=== PATIENT | male | born 1980 | race African-American/Black ===

== ENCOUNTER 2021-08-18 10:04 | Inpatient (IN) | payer OTHER ==
[~2021-08-18] VITALS: Ht 180.3 cm; Wt 91.0 kg
[2021-08-18] MEDS ORDERED: MELATONIN1 MG PO (10:49)
[2021-08-18] MEDS ORDERED: REMERON45 M1 PO (10:50)
--- NOTE | 2021-08-18 14:58 | NUR ---
New admit from ED. Patient arrived alert and oriented x4. Patient on room air, respirations even and non labored. Patient reports abd pain is 10/10. Morphine 4mg iv and oxycodone 5mg po admin for pain. IV fluids started per provider order. Patient oriented to room and call light. Two correctional officers at bedside. Patient has correctional wrist and ankle cuffs in place.
--- NOTE | 2021-08-18 17:59 | NUR ---
Patient resting in bed, eyes closed, respirations even and non labored. IV fluids infusing per provider order. Two correctional officers at bedside.
--- NOTE | 2021-08-18 18:35 | NUR ---
PATIENT SITTING UP IN BED WATCHING TV, 2 GUARDS IN ROOM. VITALS AND I&O'S CHARTED. FRESH ICE CHIPS GIVEN. CALL LIGHT IN REACH. NO FURTHER NEEDS AT THIS TIME.
--- NOTE | 2021-08-18 18:48 | NUR ---
Patient eating ice chips, no nausea at this time. Patient reports abdominal pain has improved, declined pain medication at this time. No needs. Two correctional officers at bedside.
--- NOTE | 2021-08-18 19:30 | NUR ---
SHIFT REPORT RECEIVED FROM DAYSHIFT ELVIA BARNES AT BEDSIDE. pt AWAKE AND RESTING IN BED, ON RA. RR EVEN AND UNLABORED. GUARDS X2 IN ROOM. IV FLUIDS INFUSING DIRECTED, IV SITE WNL. NO NEEDS OR CONCERNS VERBALIZED, CALL LIGHT IN REACH. BOARD UPDATED.
--- NOTE | 2021-08-18 21:45 | NUR ---
ASSESSMENT COMPLETE, pt AWAKE AND RESTING IN BED. VSS, pt ON RA. REPORTS INCREASED PAIN 6/10, PRN PAIN AND NAUSEA MEDICATION GIVEN (SEE EMAR). NEW BAG IV FLUIDS ALSO INFUSING DIRECTED, IV SITE WNL AND FLUSHED EASILY. BRISK BLOOD RETURN NOTED. BOWEL TONES ACTIVE. GUARDS IN ROOM, SKILLED NURSING RESRAINTS IN PLACE. NO FURTHER NEEDS, CUP OF ICE PROVIDED. CALL LIGHT IN REACH.
--- NOTE | 2021-08-19 00:01 | NUR ---
rounded on pt, pt resting in bed with eyes closed. on ra, rr even and unlabored. no distress noted. call light in reach. guards x2 in room.
--- NOTE | 2021-08-19 00:59 | NUR ---
CALL LIGHT ANSWERED, IV PUMP ALARMING. ISSUE RESOLVED. IV SITE WNL, FLUIDS CONTINUE TO INFUSE DIRECTED. CALL LIGHT IN REACH.
--- NOTE | 2021-08-19 02:17 | NUR ---
IV PUMP ALARMING, ISSUE RESOLVED. NEW BAG IV FLUIDS HUNG AND INFUSING DIRECTED. IV SITE WNL. ASSESSMENT COMPLETE, NO ACUTE CHANGES. pt DENEIS NAUSEA, BOWEL TONES ACTIVE. REPORTS ABD TENDERNESS IN UPPER QUADRANTS. RATES PAIN TOLERABLE 4/10, DENIES NEED FOR PAIN MEDICATION. VSS AND I&O'S COMPLETE. pt REPORTS PEEING UNMEASURED VOID X1 AND DESCRIBES IT "A LOT", HAT PROVIDED, pt EDUCATED TO USE HAT TO BETTER MEASURE URINE OUTPUT, pt VERBALIZED UNDERSTANDING. CALL LIGHT IN REACH.
--- NOTE | 2021-08-19 03:35 | NUR ---
pt RESTING IN BED WITH EYES CLOSED, ON RA. RR EVEN AND UNLABORED. NO DISTRESS NOTED. CALL LIGHT IN REACH.
--- NOTE | 2021-08-19 05:21 | NUR ---
VSS AND I&O'S COMPLETE. FRESH ICE CHIPS PROVIDED AND IV FLUIDS INFUSIGN DIRECTED. IV SITE WNL. NO FURTHER NEEDS, CALL LIGHT IN REACH.
--- NOTE | 2021-08-19 05:26 | NUR ---
PRN TYLENOL GIVEN FOR REPORTED 5/10 PAIN R/T HEADACHE.
--- NOTE | 2021-08-19 05:45 | NUR ---
PRN OXYCODONE ALSO GIVEN FOR REPORTED PAIN TO ABD, WARM WASHCLOTH PROVIDED TO WASH pt's FACE PER pt REQUEST.
--- NOTE | 2021-08-19 07:11 | NUR ---
NEW BAG IV FLUIDS HUNG AND INFUSING DIRECTED. IV SITE WNL, CALL LIGHT IN REACH,.
--- NOTE | 2021-08-19 09:19 | NUR ---
Oxycodone 5mg po admin for reports of 7/10 abd pain.
[2021-08-19] MEDS ORDERED: DICLOFENAC SODI75 MG PO (09:29)
[2021-08-19] MEDS ORDERED: MIRALAX17 GM PO (10:01)
[2021-08-19] MEDS ORDERED: ARTHRITIS PAIN57 GM TOP (10:02)
[2021-08-19] MEDS ORDERED: VASELINE18 ML TOP (10:02)
[2021-08-19] MEDS ORDERED: MILK OF MA400 MG/5 M PO (10:03)
--- NOTE | 2021-08-19 10:03 | NUR ---
MED REC COMPLETE
--- NOTE | 2021-08-19 11:31 | NUR ---
Patient reports increased abdominal pain and nausea. Admin Morphine 2mg iv and zofran 4mg iv at this time. Patient provided with a warm pack as well. Head of bed is elevated at this time. Patient encouraged to rest. Two correctional officers at in room at this time, no further needs at this time.
--- NOTE | 2021-08-19 13:34 | NUR ---
Patient in bed at this time resting, no acute distress. Patient has no needs at this time. Personal supplies and call light within reach.
--- NOTE | 2021-08-19 14:44 | NUR ---
IV fluid rate decreased to 150ml/hr per provider order. Patient provided with fresh water and jello as his diet advanced to clears. Admin Oxycodone 10mg po and tylenol 500mg po for reports of 7/10 abdominal pain.
--- NOTE | 2021-08-19 18:48 | NUR ---
Patient resting in bed, no distress. IV fluids infusing per provider order. Patient reports pain is tolerable. Patient has tolerated clears well.
--- NOTE | 2021-08-19 19:20 | NUR ---
SHIFT REPORT RECEIVED FROM ONELUTFT ELVIA BARNES AT BEDSIDE. pt AWAKE AND RESTING IN BED. EOCI RESTRAINTS IN PLACE, GUARDS X2 IN ROOM. IV FLUIDS INFUSING, IV SITE WNL. CALL LIGHT IN REACH, NO NEEDS OR CONCERNS VERBALIZED. WILL CONTINUE TO MONITOR.
--- NOTE | 2021-08-19 21:00 | NUR ---
ASSESSMENT COMPLETE, pt REPORTS 6/10 PAIN. PRN PAIN AND NAUSEA MEDICATION BOTH GIVEN, SEE EMAR. IV SITE WNL, FLSUHES ESILY WITH BRISK BLOOD RETURN. ABD SOFT, TENDERNESS NOTED WITH PALPATE IN UPPER QUADRANTS. CMS INTACT, pt DENEIS NUMBNESS AND TINGLING. VSS AND I&O'S COMPLETE. NO FURTHER NEEDS, CALL LIGHT IN REACH.
--- NOTE | 2021-08-19 22:30 | NUR ---
ROUNDED ON pt, pt AWAKE AND RESTING IN BED. IV SITE WNL, FLUIDS INFUSING DIRECTED. CALL LIGHT IN REACH.
--- NOTE | 2021-08-19 23:50 | NUR ---
PT PROVIDED WITH BATH WIPES AND ASSISTED WITH FRESHING UP, NO FURTHER NEEDS
--- NOTE | 2021-08-20 00:03 | NUR ---
APPLEJUICE AND FRESH WATER PROVIDED, NO ADDITIOANL NEEDS.
--- NOTE | 2021-08-20 00:32 | NUR ---
NEW BAG IV FLUIDS HUNG AND INFUSING DIRECTED, IV SITE WNL. NO FURTHER NEEDS, CALL LIGHT IN REACH.
--- NOTE | 2021-08-20 02:25 | NUR ---
pt AWAKE AND RESTING IN BED, NO NEEDS OR CONCERNS VERBALIZED. CALL LIGHT IN REACH.
--- NOTE | 2021-08-20 04:50 | NUR ---
IN TO GET VS, PT HAS NO FURTHER NEEDS AT THIS TIME
--- NOTE | 2021-08-20 05:26 | NUR ---
IV SITE WNL, PUMP CLEARED. ASSESSMENT COMPLETE, pt RESTING QUIETLY IN BED WITH EYES CLOSED. AWOKE FOR ASSESSMENT, NO NEEDS OR CONCERNS VERBALIZED BY pt. CALL LIGHT IN REACH.
--- NOTE | 2021-08-20 07:20 | NUR ---
REPORT RECIEVED FROM [facility]. PT RESTING IN BED, GUARDS AT BEDSIDE. CALL LIGHT IN REACH.
--- NOTE | 2021-08-20 08:32 | NUR ---
PT ASSESSMENT COMPLETE. SCHEDULED MEDICATIONS GIVEN. DR ODELL IN ROOM TO DISCUSS PLAN OF CARE, PT UNDERSTANDS AND IS AGREEABLE. PT A +O, STAES NO PAIN AT THIS TIME. HRR, LSC, BOWEL TONES ACTIVE. LEFT LEG ELEVATED DRESSING INTACT, CMS INTACT. SKIN WARM AND DRY. NO FUTHER NEEDS AT THIS TIME. WILL CONTINUE PLAN OF CARE CALL LIGHT IN REACH.
--- NOTE | 2021-08-20 08:50 | NUR ---
IN ROOM TO ADMINISTER SCHEDULED MEDICATIONS, ASSESSMENT COMPLETE. PT A + O. HRR, LSC, BOWEL TONES ACTIVE. PT STATES TENDERNESS IN LRQ. MILDLY DISTENDED, NO PAIN AT THIS TIME. SKIN WARM AND DRY CMS INTACT. IV WNL. NO FURTHER NEEDS AT THIS TIME. WILL CONTINUE PLAN OF CARE.
--- NOTE | 2021-08-20 10:05 | NUR ---
PROVIDED PT WITH FOOD TO ADVANCE TO A FULL CLEAR DIET. PT EDUCATED STATES UNDERSTANDING. WILL CONTINUE PLAN OF CARE. GUARDS X2 AT BEDSIDE. CALL LIGHT IN REACH.
--- NOTE | 2021-08-20 10:27 | NUR ---
PATIENT SITTING UP IN BED WATCHING TV. 2 GUARDS IN ROOM. VITALS AND I&O'S CHARTED. CALL LIGHT IN REACH. NO FURTHER NEEDS AT THIS TIME.
--- NOTE | 2021-08-20 12:30 | NUR ---
IN PT ROOM TO ANSWER CALL LIGHT, TOILET PAPER PROVIDED. PT TOLERATED CLEARS AND FULL LIQUIDS. GUARDS IN ROOM, PT INTERACTING WITH STAFF. NO OTHER NEEDS AT THIS TIME.
--- NOTE | 2021-08-20 13:50 | NUR ---
IN ROOM TO REASSESS PT. PT RESTING IN BED WATCHING TV. PT A+O, ON ROOM AIR, LSC. PT STATES TENDERNESS IN ABD, MILDLY DISTENDED. CMS INTACT. CALL LIGHT IN REACH. WATER PROVIDED. NO FUTHER NEEDS AT THIS TIME.
--- NOTE | 2021-08-20 14:07 | NUR ---
New bag IVF hung at 100ml/hr. Pt medicated with PRN meds- zofran and PO oxycodone for 5/10 ABD pain. Pt A+O, RR even, no further needs. Repositioned in bed.
--- NOTE | 2021-08-20 14:43 | NUR ---
PATIENT SITTING UP IN BED WATCHING TV. 2 GUARDS IN ROOM. VITALS AND I&O'S CHARTED. CALL LIGHT IN REACH. NO FURTHER NEEDS AT THIS TIME.
--- NOTE | 2021-08-20 16:15 | NUR ---
ROUNDED ON PT WHO ASKS ABOUT DINNER. UPDATED ON DIET ORDER, PT STATES NO NAUSEA AT THIS TIME. CALL LIGHT IN REACH
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
[2021-08-20] MEDS ORDERED: OXYCODONE HCL5 MG PO (18:31)
[2021-08-20] MEDS ORDERED: ONDANSETRON ODT8 MG PO (18:32)
--- NOTE | 2021-08-20 18:58 | NUR ---
PATIENT SITTING UP IN BED, 2 GUARDS IN ROOM. VITALS AND I&O'S CHARTED. CALL LIGHT IN REACH. NO FURTHER NEEDS AT THIS TIME.
--- NOTE | 2021-08-20 19:42 | NUR ---
Regarding pt discharge, this RN in room to discuss in detail patient's condition. Pt educated extensively on etiology of pancreatitis, care and management, treatment plan from hospital stay and sx/symptoms of recurrence. Pt verbalizes understanding, all questions answered.
== END 2021-08-20 19:35 | disposition home or self-care (01) | DRG 439 ==
LOC: ED 10:04 → MS 13:27
PROVIDERS: ADMIT Internal Medicine; ATTEND Internal Medicine
DX: K85.00 Idiopathic acute pancreatitis without necrosis or infection (principal); F33.9 Major depressive disorder, recurrent, unspecified; Z79.899 Other long term (current) drug therapy
CPT/HCPCS: 36415; 76705; 80053; 80061; 83690; 85025; 87502; 96374; 96375; 96376; 99285-25; A9270; J1170; J1650; J2270; J2405; J7121; U0003